=== PATIENT | female | born 1945 | race African-American/Black ===

== ENCOUNTER 2017-03-08 15:24 | Emergency (ER) | payer BC ==
[~2017-03-08] VITALS: Ht 170.2 cm; Wt 83.9 kg
[~2017-03-08 15:24] MED LIST: DOCU-94 PO; NIFE60TA59 PO
[2017-03-08 17:00] VITALS: BP 133/85
[2017-03-08] MEDS ORDERED: KETOROLAC TROMETH 60MG/2ML VIAL IM ONE (18:15)
== END 2017-03-08 18:41 | disposition home or self-care (01) ==
LOC: ER 15:25
DX: H60.501 Unspecified acute noninfective otitis externa, right ear (principal); I10 Essential (primary) hypertension; M54.5 Low back pain; G89.29 Other chronic pain; Z76.0 Encounter for issue of repeat prescription; Z79.899 Other long term (current) drug therapy
CPT/HCPCS: 93005; 96372; 99283; J1885

== ENCOUNTER 2017-10-04 14:11 | Emergency (ER) | payer BC ==
[~2017-10-04] VITALS: Ht 170.2 cm; Wt 65.8 kg
[2017-10-04] MEDS ORDERED: SODIUM CHLORIDE 0.9% 1,000 ML IV ONE (15:07)
[2017-10-04 15:13] LABS: Basophils # (auto) 0.1 uL; Basophils % (auto) 1.3 % (0.0-2.0); Eosinophils # (auto) 0.1 uL; Eosinophils % (auto) 1.6 % (0.0-7.0); Hemoglobin 15.5 g/dL (12.2-16.2); Lymphocytes % (auto) 39.3 % (10.0-50.0); Mean Corpuscular Hemoglobin 32.1 pg (28.0-32.0); Mean Corpuscular Hgb Conc. 34.4 g/dL (32.0-36.0); Mean Corpuscular Volume 93.3 fL (80.0-100.0); Monocytes # (auto) 0.5 uL; Monocytes % (auto) 9.6 % (0.0-12.0); Neutrophils # (auto) 2.5 uL; Neutrophils % (auto) 48.2 % (37.0-80.0); Nucleated Red Blood Cells % 0.3 %; Platelet Count (auto) 173 10^3/uL (140-450); Red Blood Cells 4.82 10^6/uL (4.0-5.20); Red Cell Distribution Width 14.3 % (11.8-14.3); White Blood Cell 5.1 10^3/uL (4.4-10.8)
[2017-10-04] MEDS ORDERED: NALBUPHINE HCL 10 MG/1ml INJECTION IV ONE (15:15)
[2017-10-04] MEDS ORDERED: PROMETHAZINE HCL 25 MG/ML 1ML IV ONE (15:15)
[2017-10-04 15:28] LABS: INR 1.15 (0.9-1.15); Partial Thromboplastin Time 26.2 sec (22.64-33.71); Prothrombin Time 12.6 sec (9.37-12.3)
[2017-10-04 15:38] LABS: Alanine Aminotransferase 63 U/L (13-56); Albumin 3.3 g/dL (3.4-5.0); Alkaline Phosphatase 159 U/L (45-117); Anion Gap 6 (5-15); Aspartate Aminotransferase 83 U/L (15-37); BUN/Creatinine Ratio 12.1; Bilirubin, Total 0.6 mg/dL (0.2-1.0); Blood Urea Nitrogen 30 mg/dL (7-18); Calcium 8.8 mg/dL (8.5-10.1); Carbon Dioxide 25 mmol/L (21-32); Chloride 108 mmol/L (98-107); GFR African American 25 mL/min; GFR Non-African American 20 mL/min; Glucose 81 mg/dL (74-106); Magnesium 2.3 mg/dL (1.6-2.6); Potassium 3.3 mmol/L (3.5-5.1); Sodium 139 mmol/L (136-145); Total Protein 9.2 g/dL (6.4-8.2)
[2017-10-04 17:18] VITALS: BP 119/84
[2017-10-04 17:57] LABS: Urine Bacteria MANY /hpf (None Seen); Urine Blood Negative /uL (Negative); Urine Mucus FEW (None Seen); Urine Specific Gravity 1.019 (1.001-1.035); Urine WBC 5 /hpf (0 - 5)
[2017-10-04 18:19] LABS: Amphetamine Screen, Urine NEGATIVE (NEGATIVE); Barbiturate Scree,Urine NEGATIVE (NEGATIVE); Benzodiazephine Screen, Urine NEGATIVE (NEGATIVE); Cannabinoid Screen, Urine POSITIVE (NEGATIVE); Cocaine Screen, Urine NEGATIVE (NEGATIVE); Opiate Scree,Urine POSITIVE (NEGATIVE); Phencyclidine Screen, Urine NEGATIVE (NEGATIVE)
[2017-10-04] MEDS ORDERED: POTASSIUM CHL 10% (20 MEQ/15ML) 15ml ORAL SOLN GT ONE (18:30)
== END 2017-10-04 19:44 | disposition home or self-care (01) ==
LOC: ER 14:16
DX: J20.9 Acute bronchitis, unspecified (principal); R82.71 Bacteriuria; I12.9 Hypertensive chronic kidney disease with stage 1 through stage 4 chronic kidney disease, or unspecified chronic kidney disease; N18.4 Chronic kidney disease, stage 4 (severe); F12.10 Cannabis abuse, uncomplicated; R74.8 Abnormal levels of other serum enzymes; G89.29 Other chronic pain; M54.9 Dorsalgia, unspecified; E87.6 Hypokalemia
CPT/HCPCS: 36415; 71046; 80053; 80307; 81001; 83735; 83880; 84443; 84484; 85025; 85379; 85610; 85730; 93005; 94761; 96361; 96374; 96375; 99285; J2300; J2550; J7030

== ENCOUNTER 2017-10-18 21:59 | Emergency (ER) | payer BC ==
[~2017-10-18] VITALS: Ht 170.2 cm; Wt 68.0 kg
[2017-10-18 22:49] LABS: Basophils # (auto) 0.1 uL; Eosinophils # (auto) 0 uL; Eosinophils % (auto) 0.7 % (0.0-7.0); Hemoglobin 15.2 g/dL (12.2-16.2); Lymphocytes # (auto) 1.7 uL; Lymphocytes % (auto) 27.8 % (10.0-50.0); Mean Corpuscular Hemoglobin 32.3 pg (28.0-32.0); Mean Corpuscular Hgb Conc. 34.6 g/dL (32.0-36.0); Mean Corpuscular Volume 93.5 fL (80.0-100.0); Monocytes # (auto) 0.5 uL; Monocytes % (auto) 7.9 % (0.0-12.0); Neutrophils # (auto) 3.7 uL; Neutrophils % (auto) 62.6 % (37.0-80.0); Nucleated Red Blood Cells % 0.3 %; Platelet Count (auto) 147 10^3/uL (140-450); Red Blood Cells 4.71 10^6/uL (4.0-5.20); Red Cell Distribution Width 14.5 % (11.8-14.3)
[2017-10-18 23:05] LABS: Albumin 3.2 g/dL (3.4-5.0); Anion Gap 9 (5-15); BUN/Creatinine Ratio 14.1; Blood Urea Nitrogen 27 mg/dL (7-18); Calcium 8.8 mg/dL (8.5-10.1); Carbon Dioxide 22 mmol/L (21-32); Chloride 114 mmol/L (98-107); GFR African American 33 mL/min; GFR Non-African American 28 mL/min; Glucose 80 mg/dL (74-106); Potassium 3.6 mmol/L (3.5-5.1); Sodium 145 mmol/L (136-145)
[2017-10-18 23:10] LABS: Alanine Aminotransferase 93 U/L (13-56); Alkaline Phosphatase 140 U/L (45-117); Aspartate Aminotransferase 173 U/L (15-37); Bilirubin, Total 0.4 mg/dL (0.2-1.0); Total Protein 9.3 g/dL (6.4-8.2)
[2017-10-19] MEDS ORDERED: HYDROcodone-ACET 10/325MG TAB PO ONE (00:15)
[2017-10-19 00:54] LABS: Amylase 99 U/L (25-115); Lipase 208 U/L (73-393)
[2017-10-19 06:40] VITALS: BP 134/97
[2017-10-19] MEDS ORDERED: HYDROcodone-ACET 5/325MG TAB ONE (07:21)
[2017-10-19] MEDS ORDERED: HYDROcodone-ACET 5/325MG TAB PO ONE (07:30)
== END 2017-10-19 08:55 | disposition home or self-care (01) ==
LOC: ER 21:59
DX: R51 Headache (principal); I10 Essential (primary) hypertension; K75.9 Inflammatory liver disease, unspecified; R53.1 Weakness; Z88.2 Allergy status to sulfonamides
CPT/HCPCS: 36415; 70450; 80053; 82150; 83690; 83880; 84484; 85025; 93005

== ENCOUNTER 2017-10-21 22:52 | Emergency (ER) | payer BC ==
[~2017-10-21] VITALS: Ht 170.2 cm; Wt 90.7 kg
[2017-10-21] MEDS ORDERED: cloNIDine HCL 0.1 MG TAB ONE (23:08)
[2017-10-21] MEDS ORDERED: cloNIDine HCL 0.1 MG TAB PO ONE (23:15)
[2017-10-22 02:26] LABS: Basophils # (auto) 0.1 uL; Basophils % (auto) 1.3 % (0.0-2.0); Eosinophils # (auto) 0.1 uL; Eosinophils % (auto) 1.3 % (0.0-7.0); Hematocrit 40.3 % (36.0-46.0); Hemoglobin 13.8 g/dL (12.2-16.2); Lymphocytes # (auto) 2.1 uL; Lymphocytes % (auto) 36.3 % (10.0-50.0); Mean Corpuscular Hemoglobin 32.1 pg (28.0-32.0); Mean Corpuscular Hgb Conc. 34.4 g/dL (32.0-36.0); Mean Corpuscular Volume 93.4 fL (80.0-100.0); Monocytes # (auto) 0.4 uL; Monocytes % (auto) 7.5 % (0.0-12.0); Neutrophils # (auto) 3.2 uL; Neutrophils % (auto) 53.6 % (37.0-80.0); Nucleated Red Blood Cells % 0.2 %; Platelet Count (auto) 162 10^3/uL (140-450); Red Blood Cells 4.31 10^6/uL (4.0-5.20); Red Cell Distribution Width 14.3 % (11.8-14.3); White Blood Cell 5.9 10^3/uL (4.4-10.8)
[2017-10-22 02:40] LABS: Alanine Aminotransferase 75 U/L (13-56); Albumin 2.7 g/dL (3.4-5.0); Anion Gap 9 (5-15); Aspartate Aminotransferase 131 U/L (15-37); BUN/Creatinine Ratio 11.8; Blood Urea Nitrogen 21 mg/dL (7-18); Calcium 8.3 mg/dL (8.5-10.1); Carbon Dioxide 22 mmol/L (21-32); Chloride 109 mmol/L (98-107); GFR African American 36 mL/min; GFR Non-African American 30 mL/min; Glucose 89 mg/dL (74-106); Potassium 3.8 mmol/L (3.5-5.1); Sodium 140 mmol/L (136-145)
[2017-10-22 02:46] LABS: Alkaline Phosphatase 127 U/L (45-117); Bilirubin, Total 0.3 mg/dL (0.2-1.0); Total Protein 7.8 g/dL (6.4-8.2)
[2017-10-22 08:36] LABS: Urine Bacteria FEW /hpf (None Seen); Urine Blood Negative /uL (Negative); Urine Specific Gravity 1.014 (1.001-1.035); Urine WBC 1 /hpf (0 - 5)
[2017-10-22 09:25] VITALS: BP 127/91
== END 2017-10-22 11:43 | disposition home or self-care (01) ==
LOC: ER 22:53
DX: G43.909 Migraine, unspecified, not intractable, without status migrainosus (principal); I12.9 Hypertensive chronic kidney disease with stage 1 through stage 4 chronic kidney disease, or unspecified chronic kidney disease; N18.9 Chronic kidney disease, unspecified; J32.0 Chronic maxillary sinusitis; E46 Unspecified protein-calorie malnutrition; Z90.710 Acquired absence of both cervix and uterus
CPT/HCPCS: 36415; 70450; 80053; 81001; 84484; 85025; 93005